=== PATIENT | female | born 1950 | race Caucasian/White ===

== ENCOUNTER 2018-04-19 10:04 | Outpatient (CLI) | payer MEDICARE, BC ==
[~2018-04-19] VITALS: Ht 170.2 cm; Wt 104.5 kg
--- NOTE | ~2018-04-19 | OP ---
PATIENT NAME: AISHWARYA ABBASI MEDICAL RECORD: [id number] :54 LOCATION:D.CAT ADMISSION DATE: SURGEON: BRANDIN ORJO MD DATE OF OPERATION: 04/19/2018 PROCEDURES: 1. Left heart catheterization. 2. Selective coronary angiography. 3. Left ventriculogram. DESCRIPTION OF PROCEDURE: After informed consent was obtained and after a detailed description of risks, benefits as well as alternative therapies, the patient elected to proceed with angiogram and heart catheterization. The right radial area was prepped and draped in normal sterile fashion. Right radial artery was cannulated via modified Seldinger technique with placement of 5-Azeri sheath. All catheters exchanged through this sheath. FINDINGS: Left ventriculogram was performed in standard 30-degree TABARES view, reveals good cardiac wall motion throughout all segments. Overall ejection fraction estimated 60%. SELECTIVE CORONARY ANGIOGRAPHY: Left main, left anterior descending, left circumflex, and right coronary artery are smooth-walled vessels with no angiographic evidence of coronary artery disease. OVERALL IMPRESSION: 1. No angiographic evidence of coronary artery disease. 2. Normal left heart pressures. 3. Normal left ventricular systolic function. Chest pain is noncardiac in etiology. No further cardiac workup needs to be ascertained. TRANSINT:[id number] Voice Confirmation ID: [id number] DOCUMENT ID: [id number] BRANDIN ROJO MD at 1324 CC: [id number] DICTATION DATE: 04/19/18 1345 CERTIFIED WELDER: 04/19/18 1533 DEP CLI 04/19/18 [id number] [place] [address]
--- NOTE | ~2018-04-19 | HEMODYNAMI ---
PATIENT:AISHWARYA ABBASI MEDICAL RECORD: [id number] : 54 LOCATION:[facility] ADMISSION DATE: 04/19/18 Generatedon:04/19/201813:46 Patient name: AISHWARYA ABBASI Patient #: [id number] SSN: : 1950 Date of study: 04/19/2018 Page: Of Hemodynamic Procedure Report Patient Data Patient Demographics Procedure consent was obtained First Name: AISHWARYA Gender: Female Last Name: AYLEEN : 1950 [facility] Initial: CARLA Age: 67 year(s) Patient #: [id number] Race: Unknown Additional ID: [id number] Contact details Address: [address] [place] [address] rd State: [place] City: [facility] Zip code: [address] Past Medical History Allergies Allergen Reaction Date Comments Reported Other allergy 04/19/2018 Codeine. Admission Admission Data Admission Date: 04/19/2018 Admission Time: 10:04 Admit Source: Other Lab Results Lab Result Date: 04/19/2018 Lab Result Time: 10:20 Biochemistry Name Units Result Min Max BUN mg/dl 16 --(---*)-- 7 18 Creatinine mg/dl 1 --(--*-)-- 0.6 1.3 CBC Name Units Result Min Max Hematocrit % 41.5 -*(----)-- 42 54 Hemoglobin g/dl 14.1 --(*---)-- 13.5 17.5 Procedure Procedure Types Cath Procedure Diagnostic Procedure LHC LHC w/Coronaries Procedure Description Procedure Date Procedure Date: 04/19/2018 Procedure Start Time: 13:37 Procedure End Time: 13:45 Procedure Staff Name Function Trung Berg MD Performing Physician Priyank Fairbanks RT Monitor Susy Hernandez RT Scrub Nadine Boateng RN Nurse Procedure Data Cath Procedure Fluoroscopy Diagnostic fluoroscopy Total fluoroscopy Time: 1.2 time: 1.2 min min Diagnostic fluoroscopy Total fluoroscopy dose: 559 dose: 559 mGy mGy Contrast Material Contrast Material Type Amount (ml) Isovue 300 37 Entry Location Entry Primary Successful Side Size Upsize Upsize Entry Closure Ponce ccessful Closure Location (Fr) 1 (Fr) 2 (Fr) Remarks Device Remarks Radial Right 6 Fr Mechanical artery Short Compression Estimated blood loss: 5 ml Diagnostic catheters Device Type Used For End Catheter Placement DIAGNOSTIC Dalhart 110cm 5 Procedure Fr catheter ([id number]) Procedure Complications No complications Procedure Medications Medication Administration Route Dosage 0.9% NaCl I.V. 100 ml/hr Oxygen etCO2 Nasal cannula 2 l/min Lidocaine 2% added to field 20 Heparin Flush Bag added to field 2 bags (1000units/500ml NS) Radial Cocktail added to field 1 syringe (Verapomil 2mg/Nitro 400mcg/Heparin 1500units) Versed I.V. 2 mg Fentanyl I.V. 50 mcg Fentanyl I.V. 50 mcg Hemodynamics Rest HGB: 14.1 (g/dl) Heart Rate: 67 (bpm) Snapshots Pre Cath Intra NCS Post Cath Vital Signs Time Heart Resp SPO2 etCO2 NIBP (mmHg) Rhythm Pain Sedation Rate (ipm) (%) (mmHg) Status Level (bpm) 13:16:40 63 11 96 32.7 152/75(122) NSR 0 (11) 10(A) , No pain 13:21:08 65 21 100 36.5 143/77(93) NSR 0 (11) 10(A) , No pain 13:25:28 66 13 97 25.3 120/67(91) NSR 0 (11) 10(A) , No pain 13:29:44 67 10 97 34.9 117/67(100) NSR 0 (11) 10(A) , No pain 13:34:00 65 13 97 33.5 113/60(79) NSR 0 (11) 10(A) , No pain 13:38:19 63 12 97 35.7 117/65(81) NSR 0 (11) 10(A) , No pain 13:42:32 68 13 96 33.5 110/57(81) NSR 0 (11) 10(A) , No pain Medications Time Medication Route Dose Verified Delivered Reason Notes E ffectiveness by by 13:18:25 0.9% NaCl I.V. 100 Trung Chaparroyla used for ml/hr Otis Boateng psychiatric social worker 13:18:32 Oxygen etCO2 2 l/min Trung Ordaza used for Nasal Otis Boateng procedure cannula RN 13:18:39 Lidocaine 2% added 20ml Trung Nino for local to vial Otis Berg MD anesthetic field 13:18:43 Heparin Flush added 2 bags Trung Nino used for Bag to Otis Berg MD procedure (1000units/500ml field NS) 13:18:49 Radial Cocktail added 1 Trung Nino used for (Verapomil to syringe Otis Berg MD procedure 2mg/Nitro field 400mcg/Heparin 1500units) 13:27:15 Versed I.V. 2 mg Trung Mccoy for Otis Boateng sedation RN 13:27:21 Fentanyl I.V. 50 mcg Trung Mccoy for Otis Boateng sedation RN 13:32:49 Fentanyl I.V. 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 Start room use. 13:08:44 Patient received from Pre/Post Procedure Room to CCL 1 Alert and oriented. Tansferred to table in Supine position. 13:08:45 Warm blankets applied, and marily hugger turned on for patient comfort. 13:08:45 Correct patient and procedure confirmed by team. 13:08:46 ECG and BP/O2 sat monitors applied to patient. 13:15:19 Vital chart was started 13:18:25 0.9% NaCl 100 ml/hr I.V. was administered by Nadine Boateng RN; used for procedure; 13:18:32 Oxygen 2 l/min etCO2 Nasal cannula was administered by Nadine Boateng RN; used for procedure; 13:18:39 Lidocaine 2% 20ml vial added to field was administered by Trung Berg MD; for local anesthetic; 13:18:43 Heparin Flush Bag (1000units/500ml NS) 2 bags added to field was administered by Trung Berg MD; used for procedure; 13:18:49 Radial Cocktail (Verapomil 2mg/Nitro 400mcg/Heparin 1500units) 1 syringe added to field was administered by Trung Berg MD; used for procedure; 13:22:36 Baseline sample Acquired. 13:22:39 Rhythm: sinus rhythm 13:22:49 Full Disclosure recording started 13:23:16 H&P Date Dictated: 04/15/2018 Within 30 days and on chart., H&P Addendum completed by physician on day of procedure. (MUST COMPLETE FOR ALL OUTPATIENTS). 13:23:22 Pre-procedure instructions explained to patient. 13:23:22 Pre-op teaching completed and patient verbalized understanding. 13:23:23 Family in waiting room. 13:23:24 Patient NPO since Midnight. 13:23:41 Patient allergic to Other allergyCodeine. 13:23:42 Is the patient allergic to Iodine/contrast media? No. 13:23:46 Was the patient premedicated? No 13:23:46 Is patient on blood thinner?Yes 13:23:48 ACC The patient was administered the following blood thiners within the last 24 hours: ACCPlavix 13:23:50 Patient diabetic? No. 13:23:53 Previous problem with sedation/anesthesia? No ? 13:23:54 Snore? Yes 13:23:55 Sleep apnea? No 13:23:55 Deviated septum? No 13:23:56 Opens mouth fully? Yes 13:24:02 Sticks out tongue? Yes 13:24:03 Airway obstruction? No ? 13:24:06 Dentures? Yes out 13:24:08 Modified Vitaly's test Ulnar < 7 seconds 13:24:10 Patient pain scale 0/10 ?. 13:24:14 IV patent on arrival in right hand with 0.9% NaCl at O. 13:25:12 Lab Result : Creatinine 1 mg/dl 13:25:12 Lab Result : BUN 16 mg/dl 13:25:12 Lab Result : Hemoglobin 14.1 g/dl 13:25:12 Lab Result : Hematocrit 41.5 % 13:25:13 Lab results completed and on chart. 13:25:16 Right Radial & Right Groin area was prepped with chlora-prep and draped in sterile fashion 13:25:17 Alarms reviewed by R. N. 13:25:18 Sharps counted by scrub and verified by R.N. 13:25:24 Use device set Radial Dx or PCI 13:25:25 ACIST Syringe (04637) opened to sterile field. 13:25:25 Medline Cath Pack ([id number]) opened to sterile field. 13:25:25 Bag Decanter (2002S) opened to sterile field. 13:25:26 ACIST Hand Control (65246) opened to sterile field. 13:25:26 ACIST Manifold (57059) opened to sterile field. 13:25:27 Tegaderm 4 x 4 (1626W) opened to sterile field. 13:25:27 MBrace Wrist Support ([id number]) opened to sterile field. 13:25:28 DIAGNOSTIC WIRE .035 260cm J wire (232502) opened to sterile field. 13:25:29 SHEATH 6FR Slender (12-9952) opened to sterile field. 13:25:34 Physician arrived 13::34 --------ALL STOP TIME OUT------ 13:25:35 Final Timeout: patient, procedure, and site verified with staff and physician. All members of the team are in agreement. 13:25:36 Right Radial & Right Groin site verified by team. 13:25:38 Physical assessment completed. ASA score P 2 - A patient with mild systemic disease as per Trung Berg MD. 13:25:44 Sedation plan: IV Moderate Sedation Medication:Versed, Fentanyl 13:27:15 Versed 2 mg I.V. was administered by Nadine Boateng RN; for sedation; 13:27:21 Fentanyl 50 mcg I.V. was administered by Nadine Boateng RN; for sedation; 13:27:29 Zero performed for pressure channel P1 13:32:49 Fentanyl 50 mcg I.V. was administered by Nadine Boateng RN; for sedation; 13:37:20 Procedure started. 13:37:45 Local anesthetic to right radial artery with Lidocaine 2% by Trung Berg MD.INITIAL ACCESS ONLY 13:38:00 A 6 Fr Short sheath was inserted into the Right Radial artery 13:38:43 A DIAGNOSTIC Dalhart 110cm 5 Fr catheter ([id number]) was advanced over the wire and used for Procedure. 13:39:16 LV gram done using TABARES 13:39:18 Injector settings: Ml/sec: 5, Volume: 15, 13:39:25 EF : 55 % 13:39:26 LCA angiography performed. 13:40:46 RCA angiography performed. 13:41:22 Catheter removed. 13:41:23 TR BAND Standard ([id number]) opened to sterile field. 13:42:15 Sheath removed intact; hemostasis achieved with Mechanical Compression to the Right Radial artery. 13:42:17 Procedure ended.(Physican Out) 13:43:51 Fluoroscopy time 01.20 minutes. 13:44:02 Fluoroscopy dose: 559 mGy 13:44:02 Flurop Dose total: 559 13:44:17 Contrast amount:Isovue 300 37ml. 13:44:19 Sharps counted by scrub and verified by R.N. 13:44:29 TR band inflated with 12cc of air. 13:44:31 Insertion/operative site no bleeding no hematoma. 13:44:36 Post right radial artery:stable, soft, clean and dry 13:44:41 Post-procedure physical assessment completed. ASA score P 2 - A patient with mild systemic disease as per Trung Berg MD. 13:44:43 Post procedure rhythm: unchanged. 13:44:50 Estimated blood loss: 5 ml 13:44:51 Post procedure instruction explained to patient.Patient verbalizes understanding. 13:45:19 Procedure and supply charges have been captured, reviewed, submitted and are correct. 13:45:34 Procedure Complication : No complications 13:45:36 Vital chart was stopped 13:45:37 See physician's report for complete and final results. 13:45:38 Report given to Pre/Post Procedure Room. 13:45:40 Patient transfered to Pre/Post Procedure Room with Stretcher. 13:45:42 Procedure ended. 13:45:42 Full Disclosure recording stopped 13:45:55 End room use (Document Last) Device Usage Item Name Manufacture Quantity Catalog Hospital Part Current Minimal Lot# / Number Charge Number Stock Stock Serial# Code ACIST Acist 1 16407 306637 832902 939872 20 Syringe Luxtech (13911) Systems Inc Medline Medline 1 [id number] 766078 89017 441249 5 Cath Pack ([id number]) Bag Microtek 1 169934 80511 180947 5 Decanter Medical Inc. () ACIST Hand Acist 1 93032 407406 627226 724709 5 Control Luxtech (72608) Systems Inc ACIST Acist 1 28588 074814 775449 391113 5 Manifold Medical (96810) Systems Inc Tegaderm 4 3M 1 1626W 742734 249927 926832 5 x 4 (1626W) MBrace Advanced 1 140-0250-00 893624 47740 123924 5 Wrist Vascular Support Dynamics ([id number]) DIAGNOSTIC St Maldonado 1 822224 095269 686783 650815 30 WIRE .035 260cm J wire (114774) SHEATH 6FR Terumo 1 [id number] 848099 122997 437966 5 Slender (801060) DIAGNOSTIC Terumo 1 40-1114 678805 098714 029548 5 Dalhart 110cm 5 Fr catheter (894017) TR BAND Terumo 1 [id number] 501000 022450 100987 40 Standard ([id number]) Signature Audit Reklaw Stage Time Signature Unsigned Intra-Procedure 04/19/2018 Priyank Fairbanks 1:46:14 PM RT(R) Signatures Monitor : Priyank Fairbanks RT Signature : Date : Time : [id number] [place] [address]
[2018-04-19] MEDS ORDERED: ZANAFLEX4 MG PO (10:25)
[2018-04-19] MEDS ORDERED: OMEPRAZOLE20 M1 PO (10:25)
[2018-04-19] MEDS ORDERED: METOPROLOL TART50 MG PO (10:26)
[2018-04-19] MEDS ORDERED: ZESTRIL40 MG PO (10:26)
[2018-04-19] MEDS ORDERED: PRAVACHOL40 MG PO (10:26)
[2018-04-19] MEDS ORDERED: HCTZ25 MG PO (10:27)
[2018-04-19] MEDS ORDERED: NORVASC5 MG PO (10:27)
[2018-04-19] MEDS ORDERED: DESERYL50 M2 PO (10:28)
[2018-04-19 10:37] VITALS: BP 132/71; Ht 170.2 cm; Wt 104.5 kg
[2018-04-19 10:45] LABS: BASOPHILS 0.3 % (0-2); EOSINOPHILS 1.4 % (0-7); HEMATOCRIT 41.5 % (36.0-48.0); HEMOGLOBIN 14.1 g/dL (12-16); IMMATURE GRANULOCYTES 0.3 % (0-5); LYMPHOCYTES 23.6 % (15-50); MCH 31.1 pg (26.0-34.0); MCV 91.4 fL (80.0-100.0); MEAN PLATELET VOLUME 10.7 fL (7.4-10.4); MONOCYTES 10.3 % (2-11); NEUTROPHILS 64.1 % (40-80); PLATELET COUNT 220 10x3/uL (130-400); RBC 4.54 10x6/uL (4.00-5.40); RDW 12.3 % (11.5-14.5); WBC 7.9 10x3/uL (4.8-10.8)
[2018-04-19 10:54] LABS: ANION GAP 14.3 mmol/L (8-16); CALCIUM 8.8 mg/dL (8.5-10.1); CARBON DIOXIDE 28.4 mmol/L (21.0-32.0); POTASSIUM - SERUM 3.7 mmol/L (3.5-5.1)
== END 2018-04-19 16:10 | disposition home or self-care (01) ==
LOC: D.CATH 10:04
PROVIDERS: Internal Medicine Interventional Cardiology
DX: R07.89 Other chest pain (principal); Z95.5 Presence of coronary angioplasty implant and graft; Z01.812 Encounter for preprocedural laboratory examination

== ENCOUNTER → 2018-09-16 08:44 | Outpatient (CLI) | payer MEDICARE, BC ==
[2018-04-19 10:37] VITALS: BMI 36.1
[~2018-09-16 08:44] MED LIST: DESERYL50 M2 PO; HCTZ25 MG PO; METOPROLOL TART50 MG PO; NORVASC5 MG PO; OMEPRAZOLE20 M1 PO; PRAVACHOL40 MG PO; ZANAFLEX4 MG PO; ZESTRIL40 MG PO
== END | disposition home or self-care (01) ==
LOC: D.RT 09-09 08:00
PROVIDERS: ATTEND Internal Medicine Pulmonary Disease
DX: J43.9 Emphysema, unspecified (principal)

== ENCOUNTER 2019-03-19 18:22 | Emergency (ER) | payer MEDICARE, BC ==
[~2019-03-19] VITALS: Ht 170.2 cm; Wt 105.9 kg
[2019-03-19 18:30] VITALS: Ht 170.2 cm; Wt 105.9 kg
[2019-03-19] MEDS ORDERED: PROVENTIL/2.5 MG/3 M INH (18:32)
[2019-03-19] MEDS ORDERED: IPRAT-ALBUT 0.5-3 ML UPD (18:32)
[2019-03-19 19:29] LABS: BASOPHILS 0.6 % (0-2); EOSINOPHILS 1.5 % (0-7); HEMATOCRIT 42.2 % (36.0-48.0); HEMOGLOBIN 14.3 g/dL (12-16); IMMATURE GRANULOCYTES 0.3 % (0-5); LYMPHOCYTES 32.4 % (15-50); MCH 31.5 pg (26.0-34.0); MCHC 33.9 g/dL (31.0-37.0); MEAN PLATELET VOLUME 11.1 fL (7.4-10.4); MONOCYTES 7.7 % (2-11); NEUTROPHILS 57.5 % (40-80); PLATELET COUNT 196 10x3/uL (130-400); RBC 4.54 10x6/uL (4.00-5.40); RDW 12.3 % (11.5-14.5); WBC 7.2 10x3/uL (4.8-10.8)
[2019-03-19 19:45] LABS: CALC OSMOLALITY 288 mosm/kg (275-300); CALCIUM 9.6 mg/dL (8.5-10.1); CHLORIDE - SERUM 98 mmol/L (98-107); SODIUM 138 mmol/L (136-145); UREA NITROGEN 17 mg/dL (7-18); eGFR NON AFRICAN AMERICAN 59 mL/min (90-120)
[2019-03-19 19:46] LABS: GLUCOSE 296 mg/dL (74-106)
[2019-03-19 19:51] LABS: ALBUMIN 3.8 g/dL (3.4-5.0); ALKALINE PHOSPHATASE 75 U/L (46-116); ALT (SGPT) 82 U/L (10-68); BILIRUBIN - TOTAL 0.47 mg/dL (0.2-1.3); PROTEIN - SERUM 8.4 g/dL (6.4-8.2)
[2019-03-19 19:57] LABS: APPEARANCE CLEAR (CLEAR); BILIRUBIN NEGATIVE (NEGATIVE); COLOR YELLOW (YELLOW); GLUCOSE 1000 mg/dL (NEGATIVE); KETONE NEGATIVE (NEGATIVE); NITRITE NEGATIVE (NEGATIVE); PROTEIN NEGATIVE (NEGATIVE); SPECIFIC GRAVITY 1.015 (1.005-1.020); UROBILINOGEN NORMAL (NORMAL)
[2019-03-19 20:00] LABS: KETONE - SERUM NEGATIVE (NEGATIVE)
[2019-03-19 20:01] LABS: BACTERIA FEW /hpf (NEGATIVE); RED CELLS - URINE 0-5 /hpf (0-5); WHITE CELLS - URINE OCC /hpf (NEGATIVE)
[2019-03-19] MEDS ORDERED: GLUCOPHAGE1000 MG PO (23:17)
[2019-03-19] MEDS ORDERED: METFORMIN HCL500 M1 PO (23:19)
[2019-03-19 23:32] VITALS: BP 164/89
== END 2019-03-19 23:34 | disposition home or self-care (01) ==
LOC: D.ER 18:22
PROVIDERS: Family Medicine
DX: E11.9 Type 2 diabetes mellitus without complications (principal); I10 Essential (primary) hypertension; J44.9 Chronic obstructive pulmonary disease, unspecified; J45.909 Unspecified asthma, uncomplicated; M54.9 Dorsalgia, unspecified

== ENCOUNTER → 2020-01-16 09:22 | Outpatient (CLI) | payer MEDICARE, BC ==
[2019-03-19 18:30] VITALS: BMI 36.6
[~2020-01-16 09:22] MED LIST changes: +GLUCOPHAGE1000 MG PO; +IPRAT-ALBUT 0.5-3 ML UPD; +METFORMIN HCL500 M1 PO; +PROVENTIL/2.5 MG/3 M INH
== END | disposition home or self-care (01) ==
LOC: D.LAB 09:22
PROVIDERS: ATTEND Internal Medicine Pulmonary Disease
DX: Z13.9 Encounter for screening, unspecified (principal)

== ENCOUNTER → 2020-01-19 10:51 | Outpatient (CLI) | payer MEDICARE, BC ==
[2019-03-19 18:30] VITALS: BMI 36.6
== END | disposition home or self-care (01) ==
LOC: D.RT 01-14 10:30 → D.RAD 01-14 11:00 → D.RT 10:51
PROVIDERS: ATTEND Internal Medicine Pulmonary Disease
DX: J44.9 Chronic obstructive pulmonary disease, unspecified (principal)

== ENCOUNTER → 2020-07-14 14:23 | Outpatient (CLI) | payer MEDICARE, BC ==
[2019-03-19 18:30] VITALS: BMI 36.6
== END | disposition home or self-care (01) ==
LOC: D.CT 14:23
PROVIDERS: ATTEND Internal Medicine Pulmonary Disease
DX: R91.8 Other nonspecific abnormal finding of lung field (principal)

== ENCOUNTER → 2020-07-28 07:19 | Outpatient (CLI) | payer MEDICARE, BC ==
[2019-03-19 18:30] VITALS: BMI 36.6
== END | disposition home or self-care (01) ==
LOC: D.CT 07:19
PROVIDERS: ATTEND Family Medicine
DX: R10.9 Unspecified abdominal pain (principal)

== ENCOUNTER → 2020-08-06 08:11 | Outpatient (CLI) | payer MEDICARE, BC ==
[2019-03-19 18:30] VITALS: BMI 36.6
== END | disposition home or self-care (01) ==
LOC: D.CT 08:11
PROVIDERS: ATTEND Internal Medicine Pulmonary Disease
DX: R93.89 Abnormal findings on diagnostic imaging of other specified body structures (principal)

== ENCOUNTER → 2020-09-15 12:31 | Outpatient (CLI) | payer MEDICARE, BC ==
[2019-03-19 18:30] VITALS: BMI 36.6
== END | disposition home or self-care (01) ==
LOC: D.LAB 12:31
PROVIDERS: ATTEND Internal Medicine Pulmonary Disease
DX: Z11.52 Encounter for screening for COVID-19 (principal)

== ENCOUNTER → 2020-09-20 14:01 | Outpatient (CLI) | payer MEDICARE, BC ==
[2019-03-19 18:30] VITALS: BMI 36.6
== END | disposition home or self-care (01) ==
LOC: D.RT 14:00
PROVIDERS: ATTEND Internal Medicine Pulmonary Disease
DX: J44.9 Chronic obstructive pulmonary disease, unspecified (principal)

== ENCOUNTER 2020-10-08 08:59 | Day surgery (SDC) | payer MEDICARE, BC ==
[~2020-10-08] VITALS: Ht 170.2 cm; Wt 78.6 kg
[2020-10-08 09:32] LABS: BASOPHILS 0.6 % (0-2); HEMATOCRIT 41.5 % (36.0-48.0); HEMOGLOBIN 13.5 g/dL (12-16); LYMPHOCYTES 26.7 % (15-50); MCH 29.4 pg (26.0-34.0); MCHC 32.6 g/dL (31.0-37.0); MCV 90.4 fL (80.0-100.0); MEAN PLATELET VOLUME 8.6 fL (7.4-10.4); MONOCYTES 9.6 % (2-11); NEUTROPHILS 61.1 % (40-80); PLATELET COUNT 182 10x3/uL (130-400); RBC 4.59 10x6/uL (4.00-5.40); RDW 13.8 % (11.5-14.5); WBC 6.1 10x3/uL (4.8-10.8)
[2020-10-08 09:44] LABS: APTT 27.5 SECONDS (22.8-39.4); INR 1.09 (0.85-1.17)
[2020-10-08 09:46] LABS: ANION GAP 9.6 mmol/L (8-16); CALCIUM 9.4 mg/dL (8.5-10.1); CREATININE - SERUM 0.9 mg/dL (0.6-1.3); POTASSIUM - SERUM 4.6 mmol/L (3.5-5.1)
[2020-10-08] MEDS ORDERED: TRAZODONE HCL150 MG PO (10:31)
[2020-10-08] MEDS ORDERED: VENTOLIN HFA [SP8 GM INH (10:34)
[2020-10-08] MEDS ORDERED: PULMICORT0.5 MG/21 INH (10:36)
[2020-10-08 10:38] VITALS: BP 131/65; Ht 170.2 cm; Wt 78.6 kg
--- NOTE | 2020-10-08 19:22 | NUR ---
1210 VS STABLE AND PT INSTRUCTED ON NPO STATUS. 1215 PCXR HERE AND DONE. PT NPO UNTIL 2PM. 1300 XRAY RESULTS NOTED AND CALLED TO DR PAGAN. 1405 PT GIVEN INSTRUCTIONS AND IV REMOVED.
[2020-10-09 14:09] LABS: ACID FAST SMEAR Negative (()); AFB SPECIMEN PROCESSING Concentration (())
[2020-10-11 10:08] LABS: FUNGUS STAIN Final report (())
== END 2020-10-08 14:05 | disposition home or self-care (01) ==
LOC: D.OPS 08:59
PROVIDERS: ATTEND Internal Medicine Pulmonary Disease
DX: R91.8 Other nonspecific abnormal finding of lung field (principal); E66.9 Obesity, unspecified; Z68.37 Body mass index [BMI] 37.0-37.9, adult; J30.9 Allergic rhinitis, unspecified; J45.20 Mild intermittent asthma, uncomplicated; J44.9 Chronic obstructive pulmonary disease, unspecified; G47.30 Sleep apnea, unspecified; Z87.891 Personal history of nicotine dependence